=== PATIENT | female | born 1980 | race Caucasian/White ===

== ENCOUNTER 2024-04-23 01:32 | Emergency (ER) | payer OTHER, SELFPAY ==
[2024-04-23 01:35] VITALS: BP 126/87
[2024-04-23 02:28] VITALS: BP 124/81
--- NOTE | 2024-04-23 02:28 | ED.GENMED ---
History of Present Illness
General
Chief Complaint: Musculo-Skeletal Complaint
Source: patient
Exam Limitations: none
Time Seen by Provider: 04/23/24 02:19
Nursing documentation reviewed up to this point in time: agreed with
History of Present Illness
History of Present Illness:
43-year-old female presenting to the emergency department today with concerns of left lower rib discomfort over the past 8 days slightly worse since yesterday. She claims that the pain was worse tonight which vomited come to the ER. She claims
this feels like an intermittent crampy discomfort. No associated nausea vomiting numbness weakness no changes in bowel movements or bladder function. No significant shortness of breath.
Past History
Past History
ED Past Medical History: None
ED Past Surgical History: Appendectomy and Orthopedic
Social History
Tobacco: Non-smoker
Review of Systems
Review of Systems
Allergies reviewed?: Yes
All Other Systems: ROS reviewed and negative except as documented in HPI and ROS
Phy Exam
Physical Exam
Physical Exam:
GENERAL: Alert , in no apparent distress
EYE: pupils equal and reactive
NECK: Supple, no significant adenopathy.
ENT: o/p clr, mmm.
CARDIAC: Regular rate and rhythm .
LUNGS: Clear breath sounds bilaterally, no acute respiratory distress, no wheezes/rales/rhonchi
ABDOMEN: Soft, without focal tenderness, no r/g, no cvat
NEUROLOGICAL: Alert and oriented, no focal neuro deficits
SKIN: Warm and dry, skin intact.
MUSCULOSKELETAL: Reproducible tenderness to the left lower lateral rib no edema, well perfused.
PSYCH: Normal and appropriate interaction.
Course
Orders/Labs/Results
Orders:
Orders
04/23/24 02:19
CR Ribs-left 3 Vw W/pa Chest Urgent
Comment:
Reason For Exam: left lower rib paion
04/23/24 02:25
Ibuprofen [Motrin] 600 mg PO NOW STA
Ketorolac [Toradol] 30 mg IM NOW STA
Vital Signs
Initial and Last Documented VS:
Initial Vital Signs
Temp Pulse Resp BP Pulse Ox
97.3 F 88 16 126/87 98
04/23/24 01:35 04/23/24 01:35 04/23/24 01:35 04/23/24 01:35 04/23/24 01:35
Last Documented Vital Signs
Temp Pulse Resp BP Pulse Ox
97.3 F 82 18 124/81 99
04/23/24 01:35 04/23/24 02:28 04/23/24 02:28 04/23/24 02:28 04/23/24 02:28
MDM/Problems Addressed
MDM/Problems Addressed:
43-year-old female presenting to the emergency department today with concerns of intermittent sharp discomfort of the left lower lateral ribs. No overlying skin changes on examination no tenderness throughout the abdomen abdomen is soft. Has had
some degree of symptoms over the past 8 days but slightly worse today. Lungs are clear on examination pain is not overlying the chest. Very reproducible to palpation making internal injury very unlikely. Vital signs normal on arrival. Patient
with likely mild injury to the area stable for outpatient management return precautions given.
*Critical Care Note
Total Time (30-74mins, 75-104mins- exclusive of procedures): Not Applicable
ED Attending Note
-
Portions of this chart may have been created with voice recognition software.� Occasional wrong word or��sound alike� substitutions may have occurred due to the inherent limitations of voice recognition software.
Discharge Plan
Departure
Patient Disposition: Home (Routine Discharge)
Date of Disposition: 04/23/24
Time of Disposition: 03:10
Patient with high blood pressure during this ER visit?: No
Condition: Good
Covid-19: Not Applicable
Discharge Problem:
Rib pain
Instructions: Rib injury in adults
Prescriptions:
No Action
ondansetron 8 mg tablet,disintegrating
8 mg PO TID PRN (Reason: nausea and vomiting) Qty: 30 0RF
prednisone 20 mg tablet
20 mg PO BID Qty: 6 0RF
tramadol 100 mg tablet
100 mg PO Q6H PRN (Reason: pain) Qty: 14 0RF
gabapentin 300 mg capsule
300 mg PO BID Qty: 14 0RF
Activity Restrictions/Additional Instructions:
You came to the emergency department today with concerns of left-sided rib discomfort. Here you had an x-ray without signs of emergent pathology. This is likely soft tissue injury. Please take ibuprofen 600 mg every 6 hours to help with
inflammation and discomfort. Please follow closely with the primary care doctor. Return to the emergency department for any worsening, new or concerning symptoms.
Interventions
Interventions:
*Risk Screen - Suicide Last Done: 04/23/24 01:35
*General Assessment Last Done: 04/23/24 01:35
*Neglect/Abuse Screening Last Done: 04/23/24 01:35
ED- Fall Risk Assessment Last Done: 04/23/24 01:35
*ED COVID-19 Vaccine History Last Done: 04/23/24 01:35
*Nursing Disposition Last Done: 04/23/24 03:39
ED-Musculoskeletal Assessment Last Done: 04/23/24 02:28
Discharge Date and Time
Discharge Date/Time: 04/23/24 03:39
Print Language: TELUGU
[2024-04-23] MEDS: MOTRIN 600 MG PO (02:39)
== END 2024-04-23 03:39 | disposition home or self-care (01) ==
LOC: EMR 01:32
PROVIDERS: EMERGENCY PHYSICIAN Student in an Organized Health Care Education/Training Program; FAMILY PHYSICIAN Family Medicine
DX: R07.81 Pleurodynia (principal); Z87.820 Personal history of traumatic brain injury
CPT/HCPCS: 99283; 71101